=== PATIENT | female | born 1960 | race Caucasian/White ===

== ENCOUNTER 2016-12-13 11:59 | Emergency (ER) | payer OTHER ==
[~2016-12-13] VITALS: Ht 160 cm; Wt 170.0 kg
[2016-12-13 12:03] VITALS: BP 144/82; PULSE 98; RESP 18; O2SAT 99
--- NOTE | 2016-12-13 12:28 | ED.REPORT ---
HPI-Extremity Problem Lower Date of Service Dec 13, 2016 ED Provider: History of Present Illness: 8 months ago had pain in right buttocks, pain off and on since then. Now more pain in leg. Returning to [place] in 2 weeks. was taking neurontin, stopped and some psych meds. denies injury. denies bowel or bladder issues. 12/14 Nursing Notes Stated Complaint: PAIN DOWN RT HIP/LEG Chief Complaint: Back Pain or Injury Allergies: Coded Allergies: Sulfa (Sulfonamide Antibiotics) (Verified Allergy, Mild, UNKNOWN, 12/13/16) acetaminophen (Verified Allergy, Mild, OLIVA, "MAKES ME FEEL GOOFY"., 12/13/16) General Time Seen by MD: 12:27 Chief Complaint Leg injury right Hx Obtained From: Patient Onset Occurred: More than a week ago... (>6 months) Symptom Duration: Since onset Past Medical History Past Medical History Reports: COPD, Diabetes mellitus Past Surgical History nose and sinuses, adnoids Reports: Appendectomy, Hysterectomy, Tonsillectomy Smoking History Current Every Day Smoker (1 pack every 2 weeks for 39 years) Social History Alcohol Use: Denies alcohol use Drug Use: Denies drug use Occupation living with mother, no work or school, applying for disability for fibromalgyia, fired from last few jobs because according to her, she has been unable to do the jobs. 12/13/2016 Ambulatory Status Independent Review of Systems Basic Review of Systems Eyes: Vision NL, No discharge : No dysuria, No frequency Psychiatric: Normal thought content Physical Exam Initial Vital Signs Vital Signs (First) Date Time Temp Pulse Resp B/P Pulse Ox O2 Delivery O2 Flow Rate FiO2 12/13/16 12:03 36.2 98 18 144/82 99 Room Air Initial VS: Reviewed, Vital signs normal General/Constitutional: Well-developed, Well-nourished Head / Eyes: Atraumatic, Normocephalic, PERRL ENT: Mucous membranes moist, Conjunctiva normal, No scleral icterus Neck: Supple, Non-tender, Full range of motion Respiratory: Breath sounds normal, Clear to auscultation, No respiratory distress Cardiovascular: Regular rate & rhythm, Heart sounds normal, Intact distal pulses Abdomen / GI: Soft, Non-tender, No guarding, No rebound, No distention Back: No CVA tenderness Lymphatic: No lymphadenopathy Upper Extremities: Vascular intact, Neuro intact, No swelling, No tenderness Skin: Warm, Dry, No cyanosis Neurologic: Alert, Oriented, Nonfocal Psychiatric: Mood/affect normal, Behavior normal, Normal thought content Lower Extremity / Pelvis / MS: Atraumatic, Inspection NL, Full range of motion , No swelling, Non-tender, No erythema Ankle / Foot: Atraumatic, Inspection NL, Full range of motion, No swelling General/Constitutional: Awake, Alert, No acute distress, Well appearing, Well developed, Well hydrated, Well nourished, Cooperative, Not toxic appearing Respiratory / Chest: Atraumatic, Breath sounds NL, Breath sounds = bilat, No respiratory distress, No rales, No rhonchi, No wheezing Cardiovascular: Heart rate NL, Regular rhythm, Heart sounds NL, No gallop Interpretation & Diagnostics Interpretation & Diagnostics: patient states she did provide some urine but then she dropped it in the toliet Re-Eval/Medical Decision Med Decision/Clinical Course 56 year female presents with many chronic compliants. This visit has low back pain that radiates down the right leg. Exam is reasurring. Patient with good response to toradol. Encourgaed follow up. No sign of cauda equina syndrome Discharge & Departure Impression: Primary Impression: Low back pain Chronicity: chronic Back pain laterality: right Sciatica presence: with sciatica Disposition: Home Patient Instructions: Chronic Pain (ED), Sciatica (ED) Additional Instructions: We were unable to test for a bladder infection as you were unable to provide a urine. Please establish in primary care. Use ketorolac 10 mg up to 4 times a day as needed for pain. Exercises are helpful. Consider checking out the Y. Referrals: OTHER,PHYSICIAN EDSupervising Provider for APC: Wolfgang Shane MD copies to: OTHER,PHYSICIAN Lolis Torre Dec 13, 2016 12:28
[2016-12-13 14:12] VITALS: BP 132/90; PULSE 86; RESP 16; O2SAT 99
== END 2016-12-13 14:14 | disposition home or self-care (01) ==
LOC: SED 12:08
DX: M54.5 Low back pain (principal); F17.200 Nicotine dependence, unspecified, uncomplicated; Z90.710 Acquired absence of both cervix and uterus; Z88.2 Allergy status to sulfonamides; Z88.8 Allergy status to other drugs, medicaments and biological substances
CPT/HCPCS: 96372; 99284; J1885